=== PATIENT | female | born 1960 | race Caucasian/White ===

== ENCOUNTER 2018-06-29 10:01 | Outpatient (CLI) | payer BC | END 2018-06-29 10:02 | disposition home or self-care (01) | LOC: BICMAMMO 10:01 | PROVIDERS: ATTEND Family Medicine | DX: Z12.31 Encounter for screening mammogram for malignant neoplasm of breast (principal); R92.1 Mammographic calcification found on diagnostic imaging of breast; Z80.3 Family history of malignant neoplasm of breast | CPT/HCPCS: 77063; 77067 ==

== ENCOUNTER 2019-01-03 12:15 | Outpatient (CLI) | payer BC ==
--- NOTE | 2019-01-03 14:11 | ULT ---
THYROID ULTRASOUND: HISTORY: Thyroid nodule. TECHNIQUE: Real-time imaging of the right and left lobes of the gland were performed. FINDINGS: The right lobe measures 1.2 x 1.4 x 3.4 cm. The left lobe measures 1.1 x 1.1 x 3.5 cm. Tiny, 2 to 3 mm, bilateral thyroid nodules are seen. These are either cystic or complex cystic. The largest nod ule is on the left side. It is a complex cystic and solid lesion, measuring 3 x 6 mm. IMPRESSION: Tiny bilateral thyroid nodules. POS: AMARILISH
== END 2019-01-03 12:16 | disposition home or self-care (01) ==
LOC: BICULT 12:15
PROVIDERS: ATTEND Family Medicine
DX: E04.1 Nontoxic single thyroid nodule (principal); E04.2 Nontoxic multinodular goiter
CPT/HCPCS: 76536

== ENCOUNTER 2019-04-10 14:30 | Emergency (ER) | payer BC ==
[2019-04-10 15:18] LABS: Bilirubin Negative (Negative); Blood, Urine Negative (Negative); Clarity CLEAR (Clear); Glucose, Urine (Dipstick) Negative (Negative); Leukocyte Negative (Negative); Nitrite Negative (Negative); Protein, Urine (Dipstick) Negative (Neg-Trace); Specific Gravity, Urine 1.022 (1.002-1.036); Urobilinogen 0.2 mg/dL (0.2-1.0)
[2019-04-10 15:47] LABS: #Basophils 0.1 thou/uL (0.0-0.2); #Eosinphils 0.1 thou/uL (0.0-0.7); #Lymphocytes 3.3 thou/uL (1.20-3.40); #Monocytes 0.6 thou/uL (0.11-0.59); #Neutrophils 11.8 thou/uL (1.40-6.50); %Basophils 0.5 % (0.0-1.0); %Eosinophils 0.7 % (0.0-10.0); %Lymphocytes 20.7 % (21.0-51.0); %Monocytes 3.7 % (0.0-10.0); %Neutrophils 74.3 % (42.0-75.0); Hemoglobin 15.3 g/dL (12.0-16.0); Mean Corpuscular HGB CONC 34.5 g/dL (32.0-36.0); Mean Corpuscular Hemoglobin 30.3 pg (27.0-31.0); Mean Corpuscular Volume 87.6 fL (78.0-98.0); Mean Platelet Volume 6.9 fL (7.4-10.4); Platelet Count 384 thou/uL (130-400); RBC Distribution Width 12.3 % (11.5-14.5); Red Blood Cell (RBC) Count 5.06 mill/uL (4.20-5.40); White Blood Cell (WBC) Count 15.9 thou/uL (4.8-10.8)
[2019-04-10 16:05] LABS: Anion Gap 14 mmol/L (10-20); BUN (Urea Nitrogen) 15 mg/dL (9.8-20.1); Calc. Creatinine Clearance 0 mL/min (70-130); Calcium 9.7 mg/dL (7.8-10.44); Carbon Dioxide 26 mmol/L (22-29); Chloride 102 mmol/L (98-107); Estimated GFR-MDRD 77; Glucose 156 mg/dL (70-105); Potassium 3.9 mmol/L (3.5-5.1); Sodium 138 mmol/L (136-145)
== END 2019-04-10 16:33 | disposition home or self-care (01) ==
LOC: ERS 14:30
DX: R30.0 Dysuria (principal); E78.5 Hyperlipidemia, unspecified; I10 Essential (primary) hypertension; Z79.899 Other long term (current) drug therapy
CPT/HCPCS: 36415; 80048; 81003; 85025; 99283

== ENCOUNTER 2019-06-08 11:39 | Outpatient (CLI) | payer BC | END 2019-06-08 11:40 | disposition home or self-care (01) | LOC: LAB 11:39 | PROVIDERS: ATTEND Family Medicine | DX: N39.0 Urinary tract infection, site not specified (principal) | CPT/HCPCS: 87077; 87086; 87186 ==

== ENCOUNTER 2019-08-07 12:08 | Outpatient (CLI) | payer BC ==
--- NOTE | 2019-08-07 14:03 | MMO ---
Bilateral MAMMO Bilat Screen [facility]. CLINICAL HISTORY: Patient is 58 years old and is seen for screening. The patient has the following family history of breast cancer: maternal grandmother, at age 85. The patient has no personal history of cancer. VIEWS: The views performed were: bilateral craniocaudal with tomosynthesis and bilateral mediolateral oblique with tomosynthesis. FILMS COMPARED: The present examination has been compared to prior imaging studies performed at [facility] on 03/06/2015, 03/09/2016, 04/25/2017 and 06/29/2018. This study has been interpreted with the assistance of computer-aided detection. MAMMOGRAM FINDINGS: There are scattered fibroglandular densities. There are benign appearing calcifications seen in both breasts. There are no suspicious masses, suspicious calcifications, or new areas of architectural distortion. IMPRESSION: THERE IS NO MAMMOGRAPHIC EVIDENCE OF MALIGNANCY. A ROUTINE FOLLOW-UP MAMMOGRAM IN 1 YEAR IS RECOMMENDED. THE RESULTS OF THIS EXAM WERE SENT TO THE PATIENT. ACR BI-RADS Category 2 - Benign finding MAMMOGRAPHY NOTE: 1. A negative mammogram report should not delay a biopsy if a dominant of clinically suspicious mass is present. 2. Approximately 10% to 15% of breast cancers are not detected by mammography. 3. Adenosis and dense breasts may obscure an underlying neoplasm. Reported by: MANUEL SIMENTAL MD Electonically Signed: [id number]
== END 2019-08-07 12:09 | disposition home or self-care (01) ==
LOC: BICMAMMO 12:08
PROVIDERS: ATTEND Family Medicine
DX: Z12.31 Encounter for screening mammogram for malignant neoplasm of breast (principal); Z80.3 Family history of malignant neoplasm of breast
CPT/HCPCS: 77063; 77067

== ENCOUNTER 2019-09-08 10:30 | Emergency (ER) | payer BC ==
--- NOTE | 2019-09-08 11:31 | CT ---
CT Brain WO Con: 09/08/2019 11:10 AM CLINICAL HISTORY: Pain. COMPARISON: None. FINDINGS: Motion artifact limits assessment. Hemorrhage: None. Ventricular system: Normal in size and morphology for the patient's age. Cerebral parenchyma: Normal Midline shift: None. Mass: No mass effect. Calvarium: Normal. Visualized Paranasal sinuses: Diffuse opacification of paranasal sinuses as well as bilateral mastoid air cells. IMPRESSION: Exam is limited by motion. No definite evidence of an acute intracranial abnormality. Paranasal sinus opacification and bilateral mastoid effusions. Correlate clinically.
== END 2019-09-08 12:31 | disposition home or self-care (01) ==
LOC: ERS 10:30
DX: H70.92 Unspecified mastoiditis, left ear (principal); E78.5 Hyperlipidemia, unspecified; I10 Essential (primary) hypertension; E11.9 Type 2 diabetes mellitus without complications; Z79.899 Other long term (current) drug therapy; Z79.84 Long term (current) use of oral hypoglycemic drugs
CPT/HCPCS: 70450

== ENCOUNTER 2019-09-09 21:21 | Inpatient (IN) | payer BC ==
[2019-09-09] MEDS ORDERED: Morphine 4 MG/ML VIAL ONE (21:56)
[2019-09-09] MEDS ORDERED: cefTRIAXone\\ROCEPHIN 2 GM VIAL ONE (21:57)
[2019-09-09] MEDS ORDERED: diphenhydrAMINE 50 MG/ML VIAL ONE (21:57)
[2019-09-09] MEDS ORDERED: Dexamethasone 10 MG/ML VIAL ONE (22:05)
[2019-09-09 22:18] LABS: #Basophils 0.1 thou/uL (0.0-0.2); #Eosinphils 0.4 thou/uL (0.0-0.7); #Lymphocytes 2.7 thou/uL (1.20-3.40); #Monocytes 0.4 thou/uL (0.11-0.59); #Neutrophils 13.6 thou/uL (1.40-6.50); %Basophils 0.4 % (0.0-1.0); %Eosinophils 2.2 % (0.0-10.0); %Lymphocytes 15.6 % (21.0-51.0); %Monocytes 2.5 % (0.0-10.0); %Neutrophils 79.2 % (42.0-75.0); Hemoglobin 13.8 g/dL (12.0-16.0); Mean Corpuscular HGB CONC 32.9 g/dL (32.0-36.0); Mean Corpuscular Hemoglobin 28.6 pg (27.0-31.0); Mean Corpuscular Volume 86.8 fL (78.0-98.0); Mean Platelet Volume 7.2 fL (7.4-10.4); Platelet Count 413 thou/uL (130-400); RBC Distribution Width 12.4 % (11.5-14.5); Red Blood Cell (RBC) Count 4.84 mill/uL (4.20-5.40); White Blood Cell (WBC) Count 17.2 thou/uL (4.8-10.8)
[2019-09-09 22:39] LABS: ALT (SGPT) 92 U/L (8-55); AST (SGOT) 46 U/L (5-34); Albumin 3.9 g/dL (3.5-5.0); Alkaline Phosphatase 240 U/L (40-110); Anion Gap 15 mmol/L (10-20); BUN (Urea Nitrogen) 16 mg/dL (9.8-20.1); Bilirubin, Total 0.4 mg/dL (0.2-1.2); Calc. Creatinine Clearance 0 mL/min (70-130); Calcium 9.8 mg/dL (7.8-10.44); Carbon Dioxide 28 mmol/L (22-29); Chloride 101 mmol/L (98-107); Estimated GFR-MDRD 82; Globulin 3.3 g/dL (2.4-3.5); Glucose 188 mg/dL (70-105); Potassium 3.9 mmol/L (3.5-5.1); Protein, Total 7.2 g/dL (6.0-8.3); Sodium 140 mmol/L (136-145)
[2019-09-09 22:47] LABS: Hemoglobin A1c 6.9 % (4.0-6.0)
[2019-09-09 23:15] VITALS: BMI 34.0
[2019-09-09] MEDS ORDERED: Morphine 4 MG/ML VIAL SLOW IVP PRN (23:37)
[2019-09-09] MEDS ORDERED: Ondansetron PF 4 MG/2 ML Vial IVP PRN (23:38)
[2019-09-09] MEDS ORDERED: Ondansetron ODT 4 MG TAB SL PRN (23:38)
[2019-09-09] MEDS ORDERED: Acetaminophen 325 MG TAB PO PRN (23:38)
[2019-09-10] MEDS ORDERED: Dextrose 5% in Water 1,000 ML IV PRN (04:52)
[2019-09-10] MEDS ORDERED: Acetaminophen 500 MG TAB PO PRN (04:52)
[2019-09-10] MEDS ORDERED: Ondansetron ODT 4 MG TAB PO PRN (04:52)
[2019-09-10] MEDS ORDERED: Dextrose 50% Abboject 50 ML SYRINGE SLOW IVP PRN (04:52)
[2019-09-10] MEDS ORDERED: Sodium Chloride 0.65% Nasal 44 ML BOT EA NARE PRN (04:52)
[2019-09-10] MEDS ORDERED: Ondansetron PF 4 MG/2 ML Vial IVP PRN (04:52)
[2019-09-10] MEDS ORDERED: diphenhydrAMINE 25 MG CAP PO PRN (04:52)
[2019-09-10] MEDS ORDERED: Azelastine 137 MCG/Spray 30 ML NS PRN (04:52)
[2019-09-10] MEDS ORDERED: HumaLOG 300 UNITS/3 ML VIAL SC PRN ×2 (04:52)
[2019-09-10] MEDS ORDERED: hydrALAZINE 20 MG/ML VIAL SLOW IVP PRN (04:52)
[2019-09-10] MEDS ORDERED: Morphine 4 MG/ML VIAL SLOW IVP PRN (06:04)
[2019-09-10] MEDS ORDERED: Ketorolac Tromethamine 30 MG/ML VIAL IVP PRN (06:05)
--- NOTE | 2019-09-10 07:43 | HP ---
PRIMARY CARE PROVIDER: Garry Hartman MD CHIEF COMPLAINT: Bilateral ear pain. HISTORY OF PRESENT ILLNESS: This is a 58-year-old female, who presents to [facility] Emergency Department complaining of approximately a week-long history of increasing bilateral ear pain with congestion and decreased hearing and pain radiating to her scalp and neck. The patient was apparently evaluated in the emergency room 24 hours prior to the most recent evaluation and diagnosed with mastoiditis. The patient was discharged on antibiotics as well as tramadol. However, the pain increased as well as decreased hearing. The patient admits to a sinus pressure, rhinorrhea, and yellow and green sputum. The patient denied any otorrhea, chest pain, shortness of breath, or documented fever. The patient does report that her daughter had been diagnosed with strep throat in the last week. The patient does admit to associated headache, but no visual disturbance, jaw discomfort, or tooth pain. In the emergency room, the patient underwent general evaluation with a diagnosis of otitis externa and otitis media. The patient received IV Rocephin, Decadron, morphine sulfate, and Benadryl. The patient was transferred to the medical floor for further evaluation. PAST MEDICAL HISTORY: 1. Hypertension. 2. Hyperlipidemia. 3. Diabetes mellitus, type 2. 4. Question of seasonal allergies. PAST SURGICAL HISTORY: 1. Status post hernia repair. 2. Status post hysterectomy. 3. Status post tonsillectomy. CURRENT MEDICATIONS: 1. Enalapril 20 mg p.o. daily. 2. Hydrochlorothiazide 12.5 mg p.o. daily. 3. Crestor 10 mg p.o. daily. 4. Dicyclomine 10 mg p.o. t.i.d. p.r.n. 5. Metformin 750 mg p.o. daily. 6. Fluticasone 50 mcg one spray in each naris daily. 7. Premarin 0.45 mg daily. 8. Augmentin 875 mg p.o. b.i.d. 9. Ultram 50 mg p.o. q.6 hours p.r.n. ALLERGIES: CEFADROXIL, DURICEF, INFLUENZA VIRUS VACCINE, LEVAQUIN, AND SULFA. FAMILY HISTORY: No inheritable disease per the patient report. SOCIAL HISTORY: The patient drinks alcohol weekly on a social basis. No tobacco or illicit drug use. Resides in the [facility]. REVIEW OF SYSTEMS: CONSTITUTIONAL: Negative for weight loss or gain, ability to conduct usual activities. SKIN: Negative for rash, itching. EYES: Negative for double vision, pain. ENT/MOUTH: Negative for nose bleeding, neck stiffness, pain, tenderness. CARDIOVASCULAR: Negative for palpitations, dyspnea on exertion, orthopnea. RESPIRATORY: Negative for shortness of breath, wheezing, cough, hemoptysis, fever or night sweats. GASTROINTESTINAL: Negative for poor appetite, abdominal pain, heartburn, nausea, vomiting, constipation, or diarrhea. GENITOURINARY: Negative for urgency, frequency, dysuria, nocturia. MUSCULOSKELETAL: Negative for pain, swelling. NEUROLOGIC/PSYCHIATRIC: Negative for anxiety, depression. ALLERGY/IMMUNOLOGIC: Negative for skin rash, bleeding tendency. Otherwise, negative except as stated per HPI. PHYSICAL EXAMINATION: VITAL SIGNS: On admission, blood pressure 134/70, pulse 87, respiratory rate 16, temperature 98.1 degrees Fahrenheit, and O2 saturation 95% on room air. GENERAL APPEARANCE: This is a 58-year-old female, alert and oriented x3, pleasant, responsive, in no acute distress. HEENT: Pupils are equal, round, reactive to light and accommodation. Extraocular muscles are intact. No scleral icterus. No conjunctival injection. Nares patent. OP is clear. External auditory canal without edema. TMs are opaque bilaterally. Mild tenderness to palpation in the mastoid and suboccipital region. NECK: Supple. Mild cervical adenopathy noted. No thyromegaly. No carotid bruits. Cervical spine with full active and passive range of motion. No meningeal signs noted. CHEST: Lungs are clear to auscultation bilaterally. CARDIOVASCULAR: S1 and S2 without noted murmur, rub, or gallop. ABDOMEN: Rounded, soft, nontender, and nondistended. Bowel sounds are positive in all 4 quadrants. There is no hepatosplenomegaly. No abdominal bruits. No rebound or guarding appreciated. EXTREMITIES: Warm and dry with fair turgor. No clubbing, cyanosis, or asymmetric edema appreciated. Pulses palpable distally at the dorsalis pedis, posterior tibial, and popliteal arteries bilaterally. Capillary refill less than 2 seconds. NEUROLOGIC: Cranial nerves II through XII are grossly intact. No focal or lateralizing signs appreciated. PERTINENT LABORATORY AND X-RAY FINDINGS: Basic metabolic profile within normal limits. Hemoglobin A1c 6.9, calcium 9.8, AST 46, ALT 92, and alkaline phosphatase 240 with albumin 3.9. CBC showed a white blood cell count of 17.2, hemoglobin 13.8, hematocrit 42, and platelet count 413 with 79% neutrophils. CT of the brain without contrast dated 09/08/2019, showed limited exam due to motion artifact. No acute intracranial process. Paranasal sinus opacification and bilateral mastoid effusions noted. ASSESSMENT AND PLAN: 1. Bilateral mastoiditis with otitis externa. The patient will be admitted to the medical floor. We will continue Rocephin 2 g IV q.24 hours with additional prednisone 40 mg p.o. daily. Pain control with morphine sulfate 4 mg IV q.4 hours p.r.n. pain. ENT consultation pending. Benadryl 25 mg p.o. q.6 hours p.r.n. 2. Diabetes mellitus, type 2. Insulin sliding scale for reflexive coverage. ADA diet. Serial Accu-Cheks before meals and at bedtime. 3. Hypertension. Resume home antihypertensive regimen and monitor clinical response. 4. Prophylaxis. SCDs while in bed. Pepcid 20 mg p.o. b.i.d. 5. Code status is full. Surrogate medical decision maker is the patient's spouse. Job ID: [id number]
[2019-09-10] MEDS ORDERED: predniSONE 20 MG TAB PO SCH (08:00)
[2019-09-10] MEDS ORDERED: Famotidine 20 MG TAB PO SCH (09:00)
[2019-09-10 12:16] VITALS: TEMP 97.5
[2019-09-10 17:04] VITALS: BP 126/70
[2019-09-10] MEDS ORDERED: Rosuvastatin 10 MG TAB PO SCH (21:00)
[2019-09-10] MEDS ORDERED: Estrogens, Conjugated 30 GM TUBE VAG SCH (21:00)
[2019-09-10] MEDS ORDERED: Loratadine 10 MG TAB PO SCH (21:00)
[2019-09-10] MEDS ORDERED: METFORMIN 750 MG PO SCH (21:00)
[2019-09-10] MEDS ORDERED: cefTRIAXone\\ROCEPHIN 2 GM in Sodium Chloride 0.9% 100 ML IVPB SCH (22:00)
--- NOTE | 2019-09-11 07:44 | CON ---
DATE OF CONSULTATION: REASON FOR CONSULTATION: The patient seen in consultation by Yousif for evaluation of possible malignant otitis externa. BRIEF HISTORY: This is a 58-year-old female who has had a long history of on and off ear infection. She has chronic episodes of otitis media with effusion. She is a newly diagnosed diabetic, currently stable. She is currently admitted secondary to piercing bilateral ear pain she felt for the past 2 weeks. She has had sinus and allergy outbreaks, nasal congestion, postnasal drainage and pressure in her head. She reports that her ears "went underwater like they always do." Last night, pain was severe. She was seen in the emergency room and a CT of her brain confirmed bilateral fluid in the mastoid and middle ear cavities bilaterally. She has had no fevers. No dizziness. Her headache has not completely resolved. She is admitted on IV antibiotics and pain control. PAST MEDICAL HISTORY: 1. New diagnosis of diabetes. 2. Mild hypertension. PAST SURGICAL HISTORY: She has history of ear tubes as a child. FAMILY HISTORY: Dad has had multiple sets of ear tubes in her family. SOCIAL HISTORY: Immunizations up to date. REVIEW OF SYSTEMS: GENERAL: No fevers, chills. CARDIOVASCULAR: No chest pain, shortness of breath. HEENT: She has a long history of been on allergy shots and a long history of bilateral eustachian tube dysfunction causing middle ear fluid. PHYSICAL EXAMINATION: GENERAL: The patient is resting comfortably in a chair. She communicates well verbally, although she does report some hearing loss. HEENT: Ears; tympanic membranes are intact. Mucoid effusion is present. No evidence of purulence. Mastoid bone is intact. No evidence of tenderness. Nasal cavity; allergy changes. Turbinates 3+, boggy. Oral cavity, oropharynx, thick lateral pharyngeal banding. NECK: No lymphadenopathy. No masses. ASSESSMENT: 1. Bilateral otitis media with effusion. 2. Bilateral eustachian tube dysfunction. PLAN: I see no evidence of malignant otitis externa nor is there purulence in the middle ear. At this point, she would certainly benefit from bilateral myringotomy with tube with long history of recurrent middle ear infections and fluid issues. She is okay to discharge from her ear standpoint and follow up with us tomorrow the next day for bilateral myringotomy and tube placement in the office. Job ID: [id number]
== END 2019-09-10 16:53 | disposition home or self-care (01) | DRG 153 ==
LOC: ERS 21:21 → T4-B 23:10
PROVIDERS: ADMIT Family Medicine; ATTEND Family Medicine
DX: H65.493 Other chronic nonsuppurative otitis media, bilateral (principal); H69.83 Other specified disorders of Eustachian tube, bilateral; H70.93 Unspecified mastoiditis, bilateral; H60.93 Unspecified otitis externa, bilateral; E78.5 Hyperlipidemia, unspecified; I10 Essential (primary) hypertension; E11.9 Type 2 diabetes mellitus without complications; Z90.710 Acquired absence of both cervix and uterus; Z88.7 Allergy status to serum and vaccine; Z88.1 Allergy status to other antibiotic agents; Z88.2 Allergy status to sulfonamides; Z79.899 Other long term (current) drug therapy; Z79.84 Long term (current) use of oral hypoglycemic drugs
CPT/HCPCS: 36416; 70450; 80053; 83036; 85025; 96365; 96375; J0696; J1100; J1200; J1885; J2270; J7512

== ENCOUNTER 2022-04-14 07:31 | Outpatient (CLI) | payer BC | END 2022-04-14 07:32 | disposition home or self-care (01) | LOC: BICULT 07:31 | PROVIDERS: ATTEND Family Medicine | DX: R79.89 Other specified abnormal findings of blood chemistry (principal) | CPT/HCPCS: 76705 ==

== ENCOUNTER 2022-08-05 10:58 | Outpatient (CLI) | payer BC | END 2022-08-05 10:59 | disposition home or self-care (01) | LOC: BICMAMMO 10:58 | PROVIDERS: ATTEND Obstetrics & Gynecology | DX: Z12.31 Encounter for screening mammogram for malignant neoplasm of breast (principal); Z80.3 Family history of malignant neoplasm of breast | CPT/HCPCS: 77063; 77067 ==

== ENCOUNTER 2024-04-04 15:52 | Outpatient (CLI) | payer BC | END 2024-04-04 15:53 | disposition home or self-care (01) | LOC: BICRAD 15:52 | PROVIDERS: ATTEND Nurse Practitioner Family | DX: M79.652 Pain in left thigh (principal); Z91.81 History of falling | CPT/HCPCS: 72170 ==